=== PATIENT | female | born 1980 | race Caucasian/White ===

== ENCOUNTER 2019-12-30 17:46 | Emergency (ER) | payer OTHER ==
--- NOTE | 2019-12-30 17:58 | PDOC ---
Rapid Medical Evaluation Chief Complaint: Vaginal Bleeding Time Seen by Provider: 12/30/19 17:53 Medical Evaluation: 12/30/19 17:56 I have performed a brief in-person evaluation of this patient. The patient presents with a chief complaint of: Pt is 39 y/o female with one miscarriage who presents with 5 days of vaginal bleeding. She started having abdominal cramping today. LMP was 10/04/19 and is ~12w3d gestation. She has not been seen by as400 developer yet. Pertinent physical exam findings: stable. non-toxic, no pallor I have ordered the following: saline lock, labs, pelvic US The patient will proceed to the ED for further evaluation Discharge Disposition - Diagnosis Vaginal bleeding during - Referrals - Patient Instructions - Post Discharge Activity
[2019-12-30 18:16] VITALS: BMI 25.8
[2019-12-30 18:31] LABS: BASO % 0.6 % (0-2.0); EOS % 1.1 % (0-4.5); HEMATOCRIT 41.9 % (32.4-45.2); LYMPH % 24.6 % (8-40); MCH 31.9 pg (25.7-33.7); MCHC 33.3 g/dl (32.0-36.0); MEAN CELL VOLUME 95.8 fl (80-96); MEAN PLT VOLUME 8.7 fl (7.5-11.1); MONO % 7.4 % (3.8-10.2); NEUT % 66.3 % (42.8-82.8); PLATELET COUNT 298 K/MM3 (134-434); RBC 4.38 M/mm3 (3.60-5.2); WHITE BLOOD COUNT 7.7 K/mm3 (4.0-10.0)
[2019-12-30 18:36] LABS: EPI CELLS 1.9 /HPF (0-5/HPF); HYALINE CASTS 6 /lpf (0-8); URINE APPEARANCE CLEAR; URINE BACTERIA 128.9 /hpf (NEGATIVE); URINE BILIRUBIN NEGATIVE (NEGATIVE); URINE COLOR YELLOW; URINE GLUCOSE (UA) NEGATIVE (NEGATIVE); URINE KETONE NEGATIVE (NEGATIVE); URINE LEUK ESTERASE TRACE (NEGATIVE); URINE NITRITE NEGATIVE (NEGATIVE); URINE PROTEIN 1+ (NEGATIVE); URINE UROBILINOGEN 0.2 mg/dL (0.2-1.0); URINE WBC 3 /hpf (0-5)
[2019-12-30 19:22] LABS: URINE RBC 35-40 /hpf (0-4); YEAST NEGATIVE (NEGATIVE)
--- NOTE | 2019-12-30 21:17 | PDOC ---
History of Present Illness - General Chief Complaint: Vaginal Bleeding Stated Complaint: BLEEDING/CRAMPING X4DAYS Time Seen by Provider: 12/30/19 17:53 History Source: Patient Exam Limitations: No Limitations - History of Present Illness Initial Comments: 12/30/19 21:14 39y F M1 presenting to ED with vaginal bleeding x5 days. Pt states bleeding started and was bright red. The bleeding then became spotting over the weekend and was dark brown today with some clots. She states she is not having heavy bleeding but endorses occasional cramps. Denies fever, chills, chest pain, diarrhea. LMP was 10/14/2019 and she has not been able to get an appointment with OB, but has an appointment in 8 days. She found out she was around 1 month ago. Past History - Past Medical History Allergies/Adverse Reactions: Allergies Allergy/AdvReac Type Severity Reaction Status Date / Time No Known Allergies Allergy Verified 12/30/19 17:57 COPD: No - Immunization History Immunization Up to Date: No - Psycho Social/Smoking Cessation Hx Smoking History: Never smoked Have you smoked in the past 12 months: No Information on smoking cessation initiated: No Hx Alcohol Use: No Drug/Substance Use Hx: No Review of Systems - Review of Systems Constitutional: No: Symptoms Reported HEENTM: No: Symptoms Reported Respiratory: No: Symptoms reported Cardiac (ROS): No: Symptoms Reported ABD/GI: Yes: See HPI : Yes: See HPI Musculoskeletal: No: Symptoms Reported Integumentary: No: Symptoms Reported Neurological: No: Symptoms reported *Physical Exam - Vital Signs Last Vital Signs Temp Pulse Resp BP Pulse Ox 98.2 F 98 H 18 123/78 98 12/30/19 17:54 12/30/19 17:54 12/30/19 17:54 12/30/19 17:54 12/30/19 17:54 - Physical Exam General Appearance: Yes: Nourished, Appropriately Dressed. No: Apparent D istress HEENT: positive: EOMI Neck: positive: Trachea midline Respiratory/Chest: positive: Lungs Clear, Normal Breath Sounds Cardiovascular: positive: Regular Rhythm, Regular Rate Female Pelvic Exam: positive: other (refused) Gastrointestinal/Abdominal: positive: Normal Bowel Sounds, Soft. negative: Tender Musculoskeletal: negative: CVA Tenderness Extremity: positive: Normal Capillary Refill Integumentary: positive: Normal Color, Dry, Warm Neurologic: positive: nailhead puncher II-XII NML intact, Fully Oriented, Alert, Normal Mood/Affect, Normal Response, Motor Strength 02/23 ED Treatment Course - LABORATORY CBC & Chemistry Diagram: 12/30/19 18:04 - ADDITIONAL ORDERS Additional order review: Laboratory Results 12/30/19 12/30/19 12/30/19 18:04 18:04 18:04 Beta HCG, Quant 12160.4 Urine Color Yellow Urine Appearance Clear Urine pH 5.0 Ur Specific [place] 1.027 Urine Protein 1+ H Urine Glucose (UA) Negative Urine Ketones Negative Urine Blood 3+ H Urine Nitrite Negative Urine Bilirubin Negative Urine Urobilinogen 0.2 Ur Leukocyte Esterase Trace Urine WBC (Auto) 3 Urine RBC (Auto) 35-40 Urine Casts (Auto) 6 U Epithel Cells (Auto) 1.9 Urine Bacteria (Auto) 128.9 Urine Yeast (Auto) Negative Blood Type O POSITIVE Antibody Screen Negative 12/30/19 18:04 RBC 4.38 MCV 95.8 MCHC 33.3 RDW 13.0 MPV 8.7 Neutrophils % 66.3 Lymphocytes % 24.6 Monocytes % 7.4 Eosinophils % 1.1 Basophils % 0.6 Medical Decision Making - Medical Decision Making 12/30/19 21:20 30y F M1 presenting with vaginal bleeding and cramps. labs ordered by [facility] bacteruria on UA. BhCG 10k. TVUS pending 12/30/19 22:14 patient refusing pelvic exam. US shows CRL corresponding to 9w1d with no FHR- demise. small cyst in R ovary [id number]. L ovary not identified. 12/30/19 22:43 Pt informed of results. advised to f/u with OB soon. referrals provided and Dr. Avila's office informed. pt tearful but understands. return precuations provided. Discharge - Discharge Information Problems reviewed: Yes Clinical Impression/Diagnosis: Miscarriage Condition: Stable Disposition: HOME - Admission No - Follow up/Referral Referrals: ON STAFF,NOT [Primary Care Provider] - Dayna Heath MD [Staff Physician] - Librado Seals MD [Staff Physician] - Candelaria Jimenez MD [Staff Physician] - Rabia Braga MD [Staff Physician] - Martinez Avila MD [Staff Physician] - Harriet Resendiz MD [Staff Physician] - - Patient Discharge Instructions Patient Printed Discharge Instructions: Dealing With Miscarriage, DI for Miscarriage Additional Instructions: The ultrasound shows that the baby does not have a heart beat. This is not your fault. Miscarriage this early could be due to unavoidable genetic abnormalities incompatible with life. I recommend following up with your OB. We sent a page out to Dr Avila who might be able to see you sooner. We have other providers listed below. There will be bleeding and cramping in the days to follow. You can take ibuprofen or Tylenol for the pain as needed. Come back to the ER if you start using more than 1 pad/hour, feel lightheaded, pass out, develop fevers or if any new or concerning symptom develops. - Post Discharge Activity
[2019-12-30 22:43] VITALS: BP 120/74; PULSE 86; TEMP 98
== END 2019-12-30 22:43 | disposition home or self-care (01) ==
LOC: JER 17:46
DX: O26.891 Other specified pregnancy related conditions, first trimester (principal); O03.9 Complete or unspecified spontaneous abortion without complication; Z3A.09 9 weeks gestation of pregnancy
CPT/HCPCS: 36415; 76801-TC; 81003; 84702; 85025; 86850; 86900; 86901; 87086; 99284-25